=== PATIENT | female | born 1990 | race Hispanic/Latino ===

== ENCOUNTER 2021-12-01 12:12 | Inpatient (IN) | payer OTHER ==
[2021-12-01 13:09] VITALS: BMI 44.6
[2021-12-01] MEDS ORDERED: Ondansetron PF 4 MG/2 ML Vial IVP PRN ×3 (13:43→17:16)
[2021-12-01] MEDS ORDERED: hydrALAZINE 20 MG/ML VIAL SLOW IVP PRN ×2 (13:43→17:16)
[2021-12-01] MEDS ORDERED: Promethazine HCl 25 MG/ML VIAL IM PRN ×3 (13:43→17:16)
[2021-12-01] MEDS ORDERED: Acetaminophen 500 MG TAB PO PRN (13:43)
[2021-12-01] MEDS ORDERED: Zolpidem Tartrate 5 MG TAB PO PRN (13:43)
[2021-12-01] MEDS ORDERED: Docusate 100 MG CAP PO PRN (13:43)
[2021-12-01] MEDS ORDERED: Lactated Ringer's 1,000 ML IV SCH (13:45)
[2021-12-01 14:07] LABS: Glucose 391 mg/dL (70-105)
[2021-12-01 14:40] LABS: Syphilis Antibody Nonreactive (Nonreactive); Syphilis Antibody Index 0.03 S/CO (<1.00 Non-Reactive)
[2021-12-01] MEDS ORDERED: Insulin Regular 300 UNITS/3 ML VIAL ONE (14:57)
[2021-12-01] MEDS ORDERED: Famotidine/PF 20 mg/2ml Vial ONE (14:58)
[2021-12-01] MEDS ORDERED: CEFAZOLIN 2 GM VIAL ONE (14:58)
[2021-12-01 15:06] LABS: Hemoglobin 14.6 g/dL (12.0-15.5); Mean Corpuscular HGB CONC 35.3 g/dL (32.0-36.0); Mean Corpuscular Volume 85.2 fl (81.6-98.3); Mean Platelet Volume 10.6 fl (7.4-10.4); Platelet Count 234 10x3/uL (150-450); RBC Distribution Width 12.5 % (11.5-14.5); Red Blood Cell (RBC) Count 4.86 10x6/uL (3.90-5.03); White Blood Cell (WBC) Count 10.2 10x3/uL (3.5-10.5)
[2021-12-01] MEDS ORDERED: Morphine PF 10 MG/10 ML VIAL ONE (15:07)
[2021-12-01] MEDS ORDERED: Fentanyl 100 MCG/2 ML VIAL ONE (15:08)
[2021-12-01] MEDS ORDERED: Oxytocin 10 UNITS/ML VIAL ONE ×2 (15:08→16:01)
[2021-12-01 15:20] LABS: ALT (SGPT) 20 U/L (8-55); AST (SGOT) 28 U/L (5-34); Albumin 3.4 g/dL (3.5-5.0); Alkaline Phosphatase 142 U/L (40-110); Anion Gap 16 mmol/L (10-20); BUN (Urea Nitrogen) 8 mg/dL (7.0-18.7); Bilirubin, Total 0.3 mg/dL (0.2-1.2); Calc. Creatinine Clearance 201 mL/min (70-130); Calcium 9.4 mg/dL (7.8-10.44); Carbon Dioxide 18 mmol/L (22-29); Chloride 102 mmol/L (98-107); Estimated GFR 116; Globulin 3.3 g/dL (2.4-3.5); Glucose 326 mg/dL (70-105); Potassium 4.7 mmol/L (3.5-5.1); Protein, Total 6.7 g/dL (6.0-8.3); Sodium 131 mmol/L (136-145)
[2021-12-01] MEDS ORDERED: ePHEDrine Sulfate 50 MG/10 ML VIAL ONE (15:25)
[2021-12-01] MEDS ORDERED: Ketorolac Tromethamine 30 MG/ML VIAL ONE (16:01)
[2021-12-01] MEDS ORDERED: PHENYLEPHRINE-NS 100 MCG/ML 10 ML SYRINGE ONE (16:04)
[2021-12-01] MEDS ORDERED: Ondansetron PF 4 MG/2 ML Vial ONE (16:06)
[2021-12-01] MEDS ORDERED: Phenylephrine 10 MG/ML VIAL ONE (16:08)
[2021-12-01] MEDS ORDERED: Moisturizing Cream (Eucerin) 113 GM JAR TOP PRN (16:29)
[2021-12-01] MEDS ORDERED: Naloxone HCl 0.4 mg/ml Vial IV PRN (16:29)
[2021-12-01] MEDS ORDERED: Promethazine HCl 25 MG SUPP PR PRN (16:29)
[2021-12-01] MEDS ORDERED: Naloxone HCl 0.4 mg/ml Vial IVP PRN ×2 (16:29)
[2021-12-01] MEDS ORDERED: diphenhydrAMINE 50 MG/ML VIAL IVP PRN (16:29)
[2021-12-01] MEDS ORDERED: Fentanyl 100 MCG/2 ML VIAL SLOW IVP PRN (16:29)
[2021-12-01] MEDS ORDERED: Meperidine HCl/PF 25 MG/ML VIAL SLOW IVP PRN (16:29)
[2021-12-01] MEDS ORDERED: HYDROmorphone 2 MG/ML VIAL SLOW IVP PRN (16:29)
[2021-12-01] MEDS ORDERED: Ondansetron HCl/PF 4 MG/2 ML Vial IVP PRN (16:29)
[2021-12-01] MEDS ORDERED: Communication Order-Pharmacy FS SCH (16:30)
[2021-12-01 16:42] LABS: RapidComm Collect By CBN; pH (Cord, venous) 6.936 (7.250-7.350)
[2021-12-01 16:51] LABS: RapidComm Collect By CBN
[2021-12-01 17:16] LABS: Hep B Surf Ag Non-Reactive S/CO (NonReactive)
[2021-12-01] MEDS ORDERED: Boostrix 0.5 ML (Tdap) VIAL IM ONE (17:16)
[2021-12-01] MEDS ORDERED: Misoprostol 200 MCG TAB PR PRN (17:16)
[2021-12-01] MEDS ORDERED: Measles/Mumps/Rubella 10 MCG/0.5 ML VIAL SC ONE (17:16)
[2021-12-01] MEDS ORDERED: Varicella virus, LIVE 0.5 ML VIAL SC ONE (17:16)
[2021-12-01] MEDS ORDERED: Lanolin Ointment 7 GM TUBE TOP PRN (17:16)
[2021-12-01] MEDS ORDERED: diphenhydrAMINE 25 MG CAP PO PRN (17:16)
[2021-12-01] MEDS ORDERED: Bisacodyl 10 MG SUPP PR PRN (17:16)
[2021-12-01 17:18] LABS: HBSAg Index 0.24 S/CO (0-0.99)
[2021-12-01] MEDS ORDERED: Dextrose 50% Abboject 50 ML SYRINGE SLOW IVP PRN (17:25)
[2021-12-01] MEDS ORDERED: Dextrose 5% in Water 1,000 ML IV PRN (17:25)
[2021-12-01] MEDS ORDERED: NS w/ Oxytocin 30 units 500 ML IV SCH (17:30)
[2021-12-01 18:57] LABS: Critical Notified Whom: MEDDA; pH (Cord, venous) 7.179 (7.250-7.350)
[2021-12-01] MEDS: Ketorolac Tromethamine 30 MG/ML VIAL IVP PRN (21:17)
[2021-12-01] MEDS: Insulin Regular 300 UNITS/3 ML VIAL SC PRN (21:36)
[2021-12-02] MEDS: Insulin Regular 300 UNITS/3 ML VIAL SC PRN ×6 (00:59→21:18)
[2021-12-02] MEDS ORDERED: Enoxaparin Sodium 40 MG/0.4 ML SYRINGE SC SCH (01:00)
[2021-12-02 01:13] LABS: SARS-CoV-2 NAA Rapid Test Not Detected (NotDetected)
[2021-12-02] MEDS: Ferrous Sulfate 325 MG TAB PO SCH ×3 (03:35→22:46)
[2021-12-02] MEDS: Docusate 100 MG CAP PO SCH ×3 (03:35→21:02)
[2021-12-02 04:28] LABS: Hemoglobin 11.9 g/dL (12.0-15.5); Mean Corpuscular HGB CONC 35.2 g/dL (32.0-36.0); Mean Corpuscular Hemoglobin 29.8 pg (27.0-33.0); Mean Corpuscular Volume 84.7 fl (81.6-98.3); Mean Platelet Volume 10.5 fl (7.4-10.4); Platelet Count 176 10x3/uL (150-450); RBC Distribution Width 12.6 % (11.5-14.5); Red Blood Cell (RBC) Count 3.99 10x6/uL (3.90-5.03); White Blood Cell (WBC) Count 11.2 10x3/uL (3.5-10.5)
[2021-12-02] MEDS ORDERED: Zolpidem Tartrate 5 MG TAB PO PRN (04:30)
[2021-12-02] MEDS: Ketorolac Tromethamine 30 MG/ML VIAL IVP PRN (05:22)
[2021-12-02] MEDS: Simethicone Chewable 80 MG TAB PO PRN (10:09)
[2021-12-02] MEDS: Prenatal Vitamin 1 TAB PO SCH (10:09)
[2021-12-02] MEDS: HYDROcodone/Acetaminophen 5/325 mg Tablet PO PRN ×4 (10:10→22:42)
[2021-12-02] MEDS ORDERED: Ibuprofen 800 MG TAB PO PRN (18:30)
[2021-12-02] MEDS ORDERED: metFORMIN 500 MG TAB PO SCH (21:00)
[2021-12-02] MEDS ORDERED: Ibuprofen 800 MG TAB PO SCH (22:00)
[2021-12-03] MEDS: HYDROcodone/Acetaminophen 5/325 mg Tablet PO PRN ×5 (04:41→21:31)
[2021-12-03] MEDS: metFORMIN 500 MG TAB PO SCH ×2 (09:17→18:09)
[2021-12-03] MEDS: Docusate 100 MG CAP PO SCH ×2 (09:17→21:36)
[2021-12-03] MEDS: Simethicone Chewable 80 MG TAB PO PRN (09:17)
[2021-12-03] MEDS: Prenatal Vitamin 1 TAB PO SCH (09:17)
[2021-12-03] MEDS: Ferrous Sulfate 325 MG TAB PO SCH ×2 (09:21→20:46)
[2021-12-03] MEDS: Insulin Regular 300 UNITS/3 ML VIAL SC PRN (09:35)
[2021-12-03] MEDS ORDERED: Albuterol Sulfate 2.5 mg/3 ml Neb NEB PRN (09:42)
[2021-12-03] MEDS ORDERED: HumaLOG 300 UNITS/3 ML VIAL SC PRN ×4 (14:10→19:03)
[2021-12-03] MEDS ORDERED: Dextrose 50% Abboject 50 ML SYRINGE SLOW IVP PRN (14:10)
[2021-12-03] MEDS ORDERED: Dextrose 5% in Water 1,000 ML IV PRN (14:10)
[2021-12-03] MEDS ORDERED: ALPRAZolam 0.25 MG TAB PO PRN (18:02)
[2021-12-04] MEDS: HYDROcodone/Acetaminophen 5/325 mg Tablet PO PRN ×2 (04:56→10:15)
[2021-12-04 08:07] VITALS: BP 127/88; TEMP 98.4
[2021-12-04] MEDS: metFORMIN 500 MG TAB PO SCH (08:51)
[2021-12-04] MEDS: Docusate 100 MG CAP PO SCH (08:51)
[2021-12-04] MEDS: Ferrous Sulfate 325 MG TAB PO SCH (09:02)
[2021-12-04] MEDS: Prenatal Vitamin 1 TAB PO SCH (09:02)
== END 2021-12-04 13:20 | disposition home or self-care (01) | DRG 788 ==
LOC: CSHLD/OP 12:12 → CSHLD 14:55 → CSHPP 18:35
PROVIDERS: ADMIT Obstetrics & Gynecology; ATTEND Obstetrics & Gynecology
PROC: 10D00Z1 Extraction of Products of Conception, Low, Open Approach (ICD-10-PCS; principal; 2021-12-01)
PROC: 0UB90ZZ Excision of Uterus, Open Approach (ICD-10-PCS; 2021-12-01)
DX: O24.420 Gestational diabetes mellitus in childbirth, diet controlled (principal); Z3A.32 32 weeks gestation of pregnancy; Z37.0 Single live birth; Z20.822 Contact with and (suspected) exposure to COVID-19; O76 Abnormality in fetal heart rate and rhythm complicating labor and delivery; O40.3XX0 Polyhydramnios, third trimester, not applicable or unspecified; E66.01 Morbid (severe) obesity due to excess calories; O99.214 Obesity complicating childbirth; O34.13 Maternal care for benign tumor of corpus uteri, third trimester; D25.9 Leiomyoma of uterus, unspecified; D64.9 Anemia, unspecified; O90.81 Anemia of the puerperium; J45.909 Unspecified asthma, uncomplicated; O99.52 Diseases of the respiratory system complicating childbirth
CPT/HCPCS: 36415; 36416; 51702; 76819; 82805; 82947; 83036; 85027; 86780; 86850; 86900; 86901; 87340; 88305; 88307; J0690; J1650; J1815; J1885; J2274; J2370; J2405; J2590; J3010; S0028; U0002

== ENCOUNTER 2024-11-12 22:28 | Observation (INO) | payer OTHER ==
[2024-11-12] MEDS ORDERED: Ibuprofen 800 MG TAB PO PRN (23:35)
[2024-11-12] MEDS: Acetaminophen 325 MG TAB PO PRN (23:45)
[2024-11-13] MEDS: Ketorolac Tromethamine 30 MG (1 mL) VIAL IM SCH (00:01)
[2024-11-13 00:24] VITALS: BMI 42.1
[2024-11-13] MEDS: HYDROcodone/Acetaminophen 5/325 mg Tablet PO PRN (09:20)
[2024-11-13 12:39] VITALS: BP 110/59; TEMP 98.2
== END 2024-11-13 12:55 | disposition home or self-care (01) ==
LOC: CSHANTE 22:28 → INTOOBSV 22:28
PROVIDERS: ADMIT Obstetrics & Gynecology; ATTEND Obstetrics & Gynecology
DX: O03.6 Delayed or excessive hemorrhage following complete or unspecified spontaneous abortion (principal); D62 Acute posthemorrhagic anemia; R10.30 Lower abdominal pain, unspecified
CPT/HCPCS: 36415; 83036; J1885; J7120